=== PATIENT | male | born 1990 | race Caucasian/White ===

== ENCOUNTER 2024-07-29 01:18 | Emergency (ER) | payer BC ==
[2024-07-29] MEDS ORDERED: Bupivacaine PF 0.5% 30 ML VIAL ONE (01:43)
[2024-07-29] MEDS ORDERED: Boostrix 0.5 ML (Tdap) VIAL (>/=7 yrs of age) ONE (01:43)
[2024-07-29] MEDS ORDERED: Bacitracin 1 PK ONE (02:54)
== END 2024-07-29 03:11 | disposition home or self-care (01) ==
LOC: CSHERS 01:18
DX: S61.211A Laceration without foreign body of left index finger without damage to nail, initial encounter (principal); S61.213A Laceration without foreign body of left middle finger without damage to nail, initial encounter; W26.0XXA Contact with knife, initial encounter; Y93.89 Activity, other specified; Z23 Encounter for immunization
CPT/HCPCS: 12002; 90471; 90715; J0665